=== PATIENT | female | born 1970 | race African-American/Black ===

== ENCOUNTER 2019-05-14 18:00 | Observation (INO) | payer MEDICARE, MEDICAID ==
[2019-05-14 18:47] LABS: ABSOLUTE NEUTROPHIL COUNT 7.29; BASO % 0.2 % (0-6); EOS % 1.3 % (0-6); GRAN % 63.2 % (47-80); HEMATOCRIT 37.5 % (35.0-47.0); HEMOGLOBIN 12.3 gm/dl (11.6-16.0); LYMPH % 28.4 % (16-45); MEAN CELL VOLUME 88.2 fl (81-97); MEAN CORPUSCULAR HEMOGLOBIN 28.9 pg (27-33); MEAN CORPUSCULAR HGB CONC 32.8 g/dl (32-36); MONO % 6.9 % (0-9); PLATELET COUNT 232 K/uL (130-400); RED BLOOD COUNT 4.25 M/uL (3.80-5.40); WHITE BLOOD COUNT W/O DIFF 11.5 K/uL (4.2-12.2)
[2019-05-14 19:00] LABS: BLOOD UREA NITROGEN 8 mg/dL (6-20); CREATININE 0.5 mg/dL (0.5-0.9); EST GLOMERULAR FILTRATION RATE > 60 mL/min
[2019-05-14 19:02] LABS: GLUCOSE,RANDOM 100 mg/dL (74-109)
[2019-05-14] MEDS ORDERED: ACETAMINOPHEN 1,000 MG/100 ML BTL IVPB ONE (19:04)
[2019-05-14 19:14] LABS: LIPASE 16 U/L (13-60); TOTAL PROTEIN 6.9 g/dL (6.6-8.7)
[2019-05-14] MEDS ORDERED: POTASSIUM CHLORIDE 20 MEQ TABLET PO ONE (19:14)
[2019-05-14 19:19] LABS: ALBUMIN 3.7 g/dL (4.0-5.0); ALKALINE PHOSPHATASE 87 U/L (35-104); ALT/SGPT 18 U/L (<33); AST/SGOT 17 U/L (10.0-35.0)
[2019-05-14 19:20] LABS: BILIRUBIN,DIRECT < 0.2 mg/dL (0-0.3)
--- NOTE | 2019-05-14 19:23 | Emergency Department Record ---
History of Present Illness - General Chief Complaint: Abdominal Pain Stated Complaint: DIVERTICULITUS ISSUE Time Seen by Provider: 05/14/19 18:58 Source: Patient Mode of Arrival: Ambulatory Limitations: No limitations - History of Present Illness Initial Comments: The patient is here due to a 2 day hx of AP. The pain is sharp and stabbing and is pretty much all over but does seem to be worse in the upper abdomen and does radiate down to the pelvis. The patient also has been very constipated but denies any nausea, vomiting, or dysuria. Her only abdominal surgery is having her GB removed. She does have a history of Diverticulitis with similar pain. MD Complaint: Abdominal pain Onset/Timin -: Days(s) Location: Diffuse Radiation: Suprapubic Severity: Moderate Severity scale (1-10): 9 Quality: Stabbing Consistency: Intermittent Improves With: Rest Worsens With: Movement Associated Symptoms: Constipation - Related Data Patient : No Home Medications Medication Instructions Recorded Confirmed Last Taken Budesonide/Formoterol Fumarate 2 puff INH DAILY 05/14/19 05/14/19 05/13/19 [Symbicort 160-4.5 Mcg Inhaler] Allergies Allergy/AdvReac Type Severity Reaction Status Date / Time Penicillins Allergy Severe swells Verified 05/14/19 18:11 throat Travel Screening - Travel/Exposure Within Last 30 Days Have you traveled within the last 30 days?: No - Travel/Exposure Within Last Year Have you traveled outside the [place] in the last year?: No - Additonal Travel Details Have you been exposed to anyone with a communicable illness?: No - Travel Symptoms Symptom Screening: None Review of Systems Constitutional: Denies: Chills, Fever Eyes: Denies: Eye discharge ENT: Denies: Congestion Respiratory: Denies: Cough, Dyspnea Past Medical History - SOCIAL HISTORY Smoking Status: Current every day smoker Alcohol Use: Rare Drug Use: None - RESPIRATORY Hx Respiratory Disorders: Yes Hx COPD: Yes - CARDIOVASCULAR Hx Cardio Disorders: Yes Hx Hypertension: Yes Comment:: high cholesterol - NEURO Hx Neuro Disorders: No - GI Hx GI Disorders: Yes Hx Diverticulitis: Yes - Hx Genitourinary Disorders: Yes - ENDOCRINE Hx Endocrine Disorders: No - MUSCULOSKELETAL Hx Musculoskeletal Disorders: Yes - PSYCH Hx Psych Problems: Yes Hx Anxiety: Yes Hx Depression: Yes - HEMATOLOGY/ONCOLOGY Hx Hematology/Oncology Disorders: No Family Medical History Any Significant Family History?: Yes Hx Alcohol Use: Father Hx Anxiety: Mother Hx Cancer: Brother/Sister Hx Depression: Mother, Brother/Sister Hx Diabetes: Mother, Grandparents Hx Heart Disease: Father Hx HTN: Mother Hx Stroke: Grandparents Physical Exam - General General Appearance: Alert, Oriented x3, Cooperative, No acute distress - Head Head exam: Atraumatic - Eye Eye exam: Normal appearance - Neck Neck exam: Normal inspection, Full ROM. negative: Tenderness - Respiratory Respiratory exam: Normal lung sounds bilaterally. negative: Respiratory distress - Cardiovascular Cardiovascular Exam: Regular rate, Normal rhythm, Normal heart sounds - GI/Abdominal GI/Abdominal exam: Soft, Normal bowel sounds, Tenderness (There is mild to moderate tenderness in all 4 quads.). negative: Guarding, Pulsatile mass, Rebound, Rigid - Extremities Extremities exam: Normal inspection, Full ROM, Normal capillary refill. negative: Tenderness - Back Back exam: Reports: Normal inspection - Neurological Neurological exam: Alert, Normal gait, Oriented X3. negative: Abnormal gait, Altered, Motor sensory deficit Course Vital Signs 05/14/19 18:16 Temperature 98.8 F Pulse Rate 85 Respiratory 24 Rate Blood Pressure 169/95 Pulse Ox 99 - Reevaluation(s) Reevaluation #1: The patient is doing a little better but still having significant pain. Due to that fact I did recommend a short stay hospital admission and she did agree to that plan. I then did discuss the case with Kaylee ([facility]) and she did accept the admission for Dr. Reyes. 05/14/19 20:33 Medical Decision Making - Data Complexity MDM Data: Labs Ordered and/or Reviewed, X-Ray Ordered and/or Reviewed - Lab Data Result diagrams: 05/14/19 18:30 05/14/19 18:30 Lab Results 05/14/19 05/14/19 05/14/19 Range/Units 18:30 18:30 18:30 WBC 11.5 (4.2-12.2) K/uL RBC 4.25 (3.80-5.40) M/uL Hgb 12.3 (11.6-16.0) gm/dl Hct 37.5 (35.0-47.0) % MCV 88.2 (81-97) fl MCH 28.9 (27-33) pg MCHC 32.8 (32-36) g/dl RDW 14.0 (11.5-14.5) % Plt Count 232 (130-400) K/uL MPV 11.0 H (7.4-10.4) fl Gran % 63.2 (47-80) % Lymphocytes % 28.4 (16-45) % Monocytes % 6.9 (0-9) % Eosinophils % 1.3 (0-6) % Basophils % 0.2 (0-6) % Absolute Neutrophils 7.29 Sodium 139 (136-145) mmol/L Potassium 2.7 L* (3.4-4.5) mmol/L Chloride 97 L (98-107) mmol/L Carbon Dioxide 31.0 H (22-29) mmol/L Anion Gap 11.0 (7-16) BUN 8 (6-20) mg/dL Creatinine 0.5 (0.5-0.9) mg/dL Estimated GFR > 60 mL/min Random Glucose 100 (74-109) mg/dL Calcium 9.3 (8.6-10.0) mg/dL Total Bilirubin (0.2-1.0) mg/dL Direct Bilirubin (0-0.3) mg/dL AST (10.0-35.0) U/L ALT (<33) U/L Alkaline Phosphatase (35-104) U/L Total Protein (6.6-8.7) g/dL Albumin (4.0-5.0) g/dL Lipase (13-60) U/L Serum HCG, Qual Negative (NEGATIVE) 05/14/19 Range/Units 18:30 WBC (4.2-12.2) K/uL RBC (3.80-5.40) M/uL Hgb (11.6-16.0) gm/dl Hct (35.0-47.0) % MCV (81-97) fl MCH (27-33) pg MCHC (32-36) g/dl RDW (11.5-14.5) % Plt Count (130-400) K/uL MPV (7.4-10.4) fl Gran % (47-80) % Lymphocytes % (16-45) % Monocytes % (0-9) % Eosinophils % (0-6) % Basophils % (0-6) % Absolute Neutrophils Sodium (136-145) mmol/L Potassium (3.4-4.5) mmol/L Chloride (98-107) mmol/L Carbon Dioxide (22-29) mmol/L Anion Gap (7-16) BUN (6-20) mg/dL Creatinine (0.5-0.9) mg/dL Estimated GFR mL/min Random Glucose (74-109) mg/dL Calcium (8.6-10.0) mg/dL Total Bilirubin 0.40 (0.2-1.0) mg/dL Direct Bilirubin < 0.2 (0-0.3) mg/dL AST 17 (10.0-35.0) U/L ALT 18 (<33) U/L Alkaline Phosphatase 87 (35-104) U/L Total Protein 6.9 (6.6-8.7) g/dL Albumin 3.7 L (4.0-5.0) g/dL Lipase 16 (13-60) U/L Serum HCG, Qual (NEGATIVE) - Radiology Data Radiology results: Report reviewed (CT: Sigmoid diverticulitis with no abscess or obstruction.) Disposition Disposition: Admit Clinical Impression: Diverticulitis large intestine Qualifiers: Diverticulitis bleeding: without bleeding Diverticulitis complication: unspecified complication status Qualified Code(s): K57.32 - Diverticulitis of large intestine without perforation or abscess without bleeding Disposition: Still a Patient at [facility] Decision to Admit: Admit from ER Decision to Admit Date: 05/14/19 Decision to Admit Time: 20:34 Accepting Physician: Amy Time Discussed w/Accepting Physician: 20:34 Condition: (2) Stable Instructions: Abdominal Pain (ED) Forms: Patient Portal Access Time of Disposition: 20:34 Quality - Quality Measures Quality Measures: N/A - Blood Pressure Screening View Details: Yes Does Patient Have Any of the Following: Active Dx of HTN Blood Pressure Classification: Hypertensive Reading Systolic Measurement: 169 Diastolic Measurement: 95 Screening for High Blood Pressure: Patient Exclusion, Hx of HTN [G9744]
[2019-05-14 19:32] LABS: URINE APPEARANCE CLEAR; URINE BILIRUBIN NEGATIVE (NEGATIVE); URINE BLOOD SMALL (NEGATIVE); URINE COLOR YELLOW; URINE GLUCOSE (UA) NEGATIVE (NEGATIVE); URINE KETONE NEGATIVE (NEGATIVE); URINE LEUKOCYTE ESTERASE NEGATIVE (NEGATIVE); URINE NITRITE NEGATIVE (NEGATIVE); URINE PROTEIN NEGATIVE (NEGATIVE); URINE UROBILINOGEN 0.2 E.U./dL (0.20 - 1.00)
[2019-05-14 19:40] LABS: URINE EPITHELIAL CELLS 0 - 2 (FEW); URINE WBC 0 - 2 (0-2/hpf)
[2019-05-14] MEDS ORDERED: KETOROLAC 30 MG/ML VIAL IVP ONE (19:52)
--- NOTE | 2019-05-14 20:05 | CT SCAN REPORT ---
EXAMINATION: CT Abdomen and Pelvis without IV Contrast EXAM DATE: 05/14/2019 7:56 PM TECHNIQUE: Standard protocol CT imaging of the abdomen and pelvis was performed without intravenous c ontrast. INDICATION: LLQ AP COMPARISON: None ENCOUNTER: Not applicable CT ABDOMEN AND PELVIS FINDINGS: Lung Bases: Included extent of the lung bases are clear. Small amount of enteric contrast in the dist al esophagus. Hepatobiliary: The liver has a normal size with a smooth surface. Gallbladder is absent. Pancreas: The pancreas is normal. Spleen: The spleen is not enlarged. Adrenals: Normal right adrenal. Low-attenuation left adrenal nodule measuring 2.2 cm and 7.5 Hounsfie ld units consistent with a benign adenoma. Gastrointestinal: The stomach and small bowel are normal with no obstruction or inflammation. Normal appendix moderate sigmoid colon diverticulosis. Inflamed diverticulum with focal wall thickening neris g the mesenteric border of the sigmoid colon best seen on axial image 2, 94 consistent with acute div erticulitis. No abscess or obstruction. Reproductive Organs: Unremarkable Lymphatic System: There is no adenopathy within the abdomen or pelvis. Vasculature: Normal caliber abdominal aorta Peritoneum: No free fluid, free air, or inflammation Assessment of the solid organs, soft tissues, and vascular structures is overall limited on noncontra st imaging, IMPRESSION: 1. Acute sigmoid colon diverticulitis with no abscess or obstruction. 2. Benign left adrenal adenoma. Dictated by: Michel Gold MD on 05/14/2019 8:00 PM. .
[2019-05-14] MEDS ORDERED: CIPROFLOXACIN LACTATE/D5W 400 MG/200 ML BAG IVPB ONE (20:11)
[2019-05-14] MEDS ORDERED: HYDROMORPHONE HCL 2 MG/ML VIAL IVP ONE (20:25)
[2019-05-14] MEDS ORDERED: ONDANSETRON HCL IV 4 MG/2 ML VIAL IVP ONE (20:25)
[2019-05-14] MEDS ORDERED: CIPROFLOXACIN LACTATE/D5W 400 MG/200 ML BAG IVPB SCH (21:52)
[2019-05-14] MEDS ORDERED: POTASSIUM CHLORIDE/D5-0.9%NACL 20 MEQ/1,000 ML BAG IV ONE (21:52)
[2019-05-14] MEDS ORDERED: ONDANSETRON HCL IV 4 MG/2 ML VIAL IVP PRN (21:52)
[2019-05-14] MEDS ORDERED: ACETAMINOPHEN 1,000 MG/100 ML BTL IVPB PRN (21:52)
[2019-05-14] MEDS ORDERED: ALBUTEROL HFA 8 GM INHALER INH PRN (21:52)
[2019-05-14] MEDS ORDERED: POTASSIUM CHLORIDE 20 MEQ TABLET PO SCH (22:00)
[2019-05-14] MEDS ORDERED: AMLODIPINE BESYLATE 5MG TAB PO SCH (22:30)
[2019-05-14] MEDS: METRONIDAZOLE IVPB 500 MG/100 ML BAG IVPB SCH (22:40)
[2019-05-15] MEDS: HYDROMORPHONE HCL 2 MG/ML VIAL IV PRN ×3 (00:12→08:04)
[2019-05-15] MEDS: METRONIDAZOLE IVPB 500 MG/100 ML BAG IVPB SCH (06:02)
[2019-05-15 06:31] LABS: ABSOLUTE NEUTROPHIL COUNT 4.67; BASO % 0.2 % (0-6); EOS % 2.8 % (0-6); GRAN % 50.9 % (47-80); HEMATOCRIT 35.5 % (35.0-47.0); HEMOGLOBIN 11.4 gm/dl (11.6-16.0); LYMPH % 36.3 % (16-45); MEAN CELL VOLUME 89.9 fl (81-97); MEAN CORPUSCULAR HGB CONC 32.1 g/dl (32-36); MEAN PLATELET VOLUME 10.2 fl (7.4-10.4); MONO % 9.8 % (0-9); PLATELET COUNT 212 K/uL (130-400); RED BLOOD COUNT 3.95 M/uL (3.80-5.40); RED CELL DISTRIBUTION WIDTH 14.1 % (11.5-14.5); WHITE BLOOD COUNT W/O DIFF 9.2 K/uL (4.2-12.2)
[2019-05-15 06:34] LABS: MEAN CORPUSCULAR HEMOGLOBIN 28.8 pg (27-33)
[2019-05-15 06:46] LABS: BLOOD UREA NITROGEN 9 mg/dL (6-20); CREATININE 0.6 mg/dL (0.5-0.9); EST GLOMERULAR FILTRATION RATE > 60 mL/min; GLUCOSE,RANDOM 130 mg/dL (74-109)
[2019-05-15] MEDS ORDERED: POTASSIUM CHLORIDE 20 MEQ TABLET PO ONE (07:09)
[2019-05-15] MEDS: SOD CHLOR 0.9% WITH KCL 40MEQ 40 MEQ/1,000 ML IV.SOLN IV SCH ×3 (08:05→17:46)
[2019-05-15] MEDS ORDERED: ALBUTEROL HFA 8 GM INHALER INH PRN (08:15)
--- NOTE | 2019-05-15 09:56 | History & Physical ---
History of Present Illness - Date of Service Date of Service for History & Physical: 05/15/19 - History of Present Illness Admitting Diagnosis: 1. Acute Sigmoid Diverticulitis. History of Present Illness: 49 year old female patient presented to ED with complaints of worsening abdominal pain since Sunday. Patient reports noting decreased appetite and co nstipation. Patient denies nausea, vomiting, urinary symptoms, shortness of breath, or chest pain. Patient reports a history of diverticulitis nearly 1 year ago and had a colonoscopy completed after that admission as well. Patient continues to follow with [facility]. Patient's past medical history includes COPD, HTN, and a cholecystectomy. PCP: Dr. Reyes ED Course: K 2.7 - received 40mEq K PO and 20mEq K IVPB CBC, CMP otherwise unremarkable UA negative for infection Abd/pelvic CT: acute sigmoid colon diverticulitis with no abscess or obstruction; benign left adrenal adenoma 05/15/19: Patient A&O x 4, resting comfortably in bed. Patient reports improvement in abdominal pain with IV pain medication. Denies nausea or worsening of abdominal pain with clear liquids. Travel Screening - Travel/Exposure Within Last 30 Days Have you traveled within the last 30 days?: No - Travel/Exposure Within Last Year Have you traveled outside the [place] in the last year?: No - Additonal Travel Details Have you been exposed to anyone with a communicable illness?: No - Travel Symptoms Symptom Screening: None Review of Systems Reviewed: No additional complaints except as noted below Constitutional: Denies: Chills, Fever Eyes: Denies: Eye discharge ENT: Denies: Congestion Respiratory: Denies: Cough, Dyspnea Gastrointestinal: Reports: Abdominal pain Past Medical History - SOCIAL HISTORY Smoking Status: Current every day smoker Alcohol Use: Rare Drug Use: None - RESPIRATORY Hx Respiratory Disorders: Yes Hx COPD: Yes - CARDIOVASCULAR Hx Cardio Disorders: Yes Hx Hypertension: Yes Comment:: high cholesterol - NEURO Hx Neuro Disorders: No - GI Hx GI Disorders: Yes Hx Diverticulitis: Yes - Hx Genitourinary Disorders: Yes - ENDOCRINE Hx Endocrine Disorders: No - MUSCULOSKELETAL Hx Musculoskeletal Disorders: Yes - PSYCH Hx Psych Problems: Yes Hx Anxiety: Yes Hx Depression: Yes - HEMATOLOGY/ONCOLOGY Hx Hematology/Oncology Disorders: No Family Medical History Any Significant Family History?: Yes Hx Alcohol Use: Father Hx Anxiety: Mother Hx Cancer: Brother/Sister Hx Depression: Mother, Brother/Sister Hx Diabetes: Mother, Grandparents Hx Heart Disease: Father Hx HTN: Mother Hx Stroke: Grandparents H&P Meds/Allergies - Allergies Allergies: Allergies Allergy/AdvReac Type Severity Reaction Status Date / Time Penicillins Allergy Severe swells Verified 05/14/19 18:11 throat - Home Medications Home Medications Medication Instructions Recorded Confirmed Last Taken Budesonide/Formoterol Fumarate 2 puff INH DAILY 05/14/19 05/14/19 05/13/19 [Symbicort 160-4.5 Mcg Inhaler] - Active Medications Active Medications: Current Medications Albuterol Sulfate (Ventolin Hfa) 2 puff INH Q4HR PRN PRN Reason: DYSPNEA Amlodipine Besylate (Norvasc) 10 mg PO DAILY [facility] Hydromorphone HCl (Dilaudid) 1 mg IV Q4H PRN PRN Reason: ABDOMINAL PAIN Last Admin: 05/15/19 08:04 Dose: 1 mg Documented by: Acetaminophen (Ofirmev) 1,000 mg in 100 mls @ 400 mls/hr IVPB Q6H PRN PRN Reason: PAIN - MILD TO MODERATE (1-7) Potassium Chloride/Sodium Chloride (Potassium Chl 40meq/) 40 meq in 1,000 mls @ 125 mls/hr IV Q8H NADIA Last Admin: 05/15/19 08:05 Dose: 125 mls/hr Documented by: Ciprofloxacin Lactate (Cipro) 400 mg in 200 mls @ 200 mls/hr IVPB Q12H NADIA Stop: 05/20/19 10:01 Metronidazole/Sodium Chloride (Flagyl) 500 mg in 100 mls @ 100 mls/hr IVPB Q8H [facility] Stop: 05/20/19 17:01 Ondansetron HCl (Zofran) 4 mg IVP Q4H PRN PRN Reason: NAUSEA Pantoprazole Sodium (Protonix Iv) 40 mg IV DAILY [facility] Venlafaxine HCl (Effexor Xr) 75 mg PO DAILY [facility] Physical Exam - Vital Signs Vital Signs: Vital Signs - Last 24 Hrs Temp Pulse Pulse Pulse Resp BP BP 05/15/19 08:00 97.3 F L 68 16 137/79 05/15/19 03:50 97.8 F 68 20 127/74 05/15/19 02:14 72 20 05/14/19 21:52 99 F 72 20 123/64 05/14/19 21:15 72 20 116/48 05/14/19 19:53 74 166/62 05/14/19 18:16 98.8 F 85 24 169/95 Pulse Ox 05/15/19 08:00 100 05/15/19 03:50 97 05/15/19 02:14 05/14/19 21:52 94 L 05/14/19 21:15 95 05/14/19 19:53 99 05/14/19 18:16 99 - General General Appearance: Alert, Oriented x3, Cooperative, No acute distress Limitations: No limitations - Head Head exam: Atraumatic - Eye Eye exam: Normal appearance - ENT ENT exam: Mucous membranes moist, Normal external ear exam - Neck Neck exam: Normal inspection, Full ROM. negative: Tenderness - Respiratory Respiratory exam: Normal lung sounds bilaterally. negative: Respiratory distress - Cardiovascular Cardiovascular Exam: Regular rate, Normal rhythm, Normal heart sounds Peripheral Pulses: 2+: Radial (R), Radial (L) - GI/Abdominal GI/Abdominal exam: Soft, Normal bowel sounds, Tenderness (There is mild to moderate tenderness in LUQ and LLQ). negative: Guarding, Pulsatile mass, Rebound, Rigid - Rectal Rectal exam: Deferred - exam: Deferred - Extremities Extremities exam: Normal inspection, Full ROM, Normal capillary refill. negative: Tenderness - Back Back exam: Reports: Normal inspection - Neurological Neurological exam: Alert, Normal gait, Oriented X3. negative: Abnormal gait, Altered, Motor sensory deficit - Psychiatric Psychiatric exam: Normal affect, Normal mood - Skin Skin exam: Normal color Results - Labs Result Diagrams: 05/15/19 06:20 05/15/19 06:20 Labs Last 24 Hours: Laboratory Results - last 24 hr 05/14/19 05/14/19 05/14/19 09:25 18:30 18:30 WBC 11.5 RBC 4.25 Hgb 12.3 Hct 37.5 MCV 88.2 MCH 28.9 MCHC 32.8 RDW 14.0 Plt Count 232 MPV 11.0 H Gran % 63.2 Lymphocytes % 28.4 Monocytes % 6.9 Eosinophils % 1.3 Basophils % 0.2 Absolute Neutrophils 7.29 Sodium 139 Potassium 2.7 L* Chloride 97 L Carbon Dioxide 31.0 H Anion Gap 11.0 BUN 8 Creatinine 0.5 Estimated GFR > 60 Random Glucose 100 Calcium 9.3 Total Bilirubin Direct Bilirubin AST ALT Alkaline Phosphatase Total Protein Albumin Lipase Serum HCG, Qual Urine Color Yellow Urine Appearance Clear Urine pH 7.5 Ur Specific Beemer 1.010 Urine Protein Negative Urine Glucose (UA) Negative Urine Ketones Negative Urine Blood Small H Urine Nitrite Negative Urine Bilirubin Negative Urine Urobilinogen 0.2 Ur Leukocyte Esterase Negative Urine RBC 3 - 6 Urine WBC 0 - 2 Ur Epithelial Cells 0 - 2 Urine HCG, Qual Cancelled 05/14/19 05/14/19 05/15/19 18:30 18:30 06:20 WBC 9.2 RBC 3.95 Hgb 11.4 L Hct 35.5 MCV 89.9 MCH 28.8 MCHC 32.1 RDW 14.1 Plt Count 212 MPV 10.2 Gran % 50.9 Lymphocytes % 36.3 Monocytes % 9.8 H Eosinophils % 2.8 Basophils % 0.2 Absolute Neutrophils 4.67 Sodium Potassium Chloride Carbon Dioxide Anion Gap BUN Creatinine Estimated GFR Random Glucose Calcium Total Bilirubin 0.40 Direct Bilirubin < 0.2 AST 17 ALT 18 Alkaline Phosphatase 87 Total Protein 6.9 Albumin 3.7 L Lipase 16 Serum HCG, Qual Negative Urine Color Urine Appearance Urine pH Ur Specific Beemer Urine Protein Urine Glucose (UA) Urine Ketones Urine Blood Urine Nitrite Urine Bilirubin Urine Urobilinogen Ur Leukocyte Esterase Urine RBC Urine WBC Ur Epithelial Cells Urine HCG, Qual 05/15/19 06:20 WBC RBC Hgb Hct MCV MCH MCHC RDW Plt Count MPV Gran % Lymphocytes % Monocytes % Eosinophils % Basophils % Absolute Neutrophils Sodium 138 Potassium 2.8 L* Chloride 97 L Carbon Dioxide 32.0 H Anion Gap 9.0 BUN 9 Creatinine 0.6 Estimated GFR > 60 Random Glucose 130 H Calcium 9.0 Total Bilirubin Direct Bilirubin AST ALT Alkaline Phosphatase Total Protein Albumin Lipase Serum HCG, Qual Urine Color Urine Appearance Urine pH Ur Specific Beemer Urine Protein Urine Glucose (UA) Urine Ketones Urine Blood Urine Nitrite Urine Bilirubin Urine Urobilinogen Ur Leukocyte Esterase Urine RBC Urine WBC Ur Epithelial Cells Urine HCG, Qual - Imaging and Cardiology CT scan - abdomen Status: Report reviewed VTE H&P Assessment - Risk for VTE Risk for VTE: Yes Risk Level: Moderate Risk Assessment Date: 05/15/19 Risk Assessment Time: 10:47 VTE Orders Placed or Will Be Placed: Yes Plan - Detailed Diagnosis and Plan (1) Sigmoid diverticulitis Current Visit: Yes Status: Acute Base Code: K57.32 - DVTRCLI OF LG INT W/O PERFORATION OR ABSCESS W/O BLEEDING Comment: 05/15/19: -Generalized abdominal pain with anorexia since Sunday -Abd/Pelvic CT: acute sigmoid diverticulitis with no abscess or obstruction -WBC 11.5 -UA negative for infection -Afebrile -Cipro and Flagyl IVPB -Clear liquid diet -Dilaudid and Ofirmev for pain -Previous diverticulitis 1 year ago, colonscopy completed at that time, patient of [facility] (2) Hypokalemia Current Visit: Yes Status: Acute Base Code: E87.6 - HYPOKALEMIA Comment: 05/15/19: -K 2.7 on admission, received 40mEq K PO and 20mEq IVPB -K 2.8 this morning -Additional 40mEq K PO -40mEq K with 1000ml NS @ 125ml/hr -Hypokalemia likely due to poor PO intake -Holding HCTZ -Recheck K in 6 hours (3) DVT prophylaxis Current Visit: Yes Status: Acute Base Code: Z29.9 - ENCOUNTER FOR PROPHYLACTIC MEASURES, UNSPECIFIED Comment: 05/15/19: -Moderate risk due to hospitalization and decreased mobility due to pain -Lovenox 40mg SQ daily while admitted (4) Full code status Current Visit: Yes Status: Acute Base Code: Z78.9 - OTHER SPECIFIED HEALTH STATUS Comment: 05/15/19: -Patient is a full code this admission
[2019-05-15] MEDS ORDERED: VENLAFAXINE ER 75 MG CAPSULE PO SCH (10:00)
[2019-05-15] MEDS ORDERED: UMECLIDINIUM BROMIDE (INCRUSE) 62.5MCG IH SCH (10:00)
[2019-05-15] MEDS ORDERED: CIPROFLOXACIN LACTATE/D5W 400 MG/200 ML BAG IVPB SCH (10:00)
[2019-05-15] MEDS ORDERED: BREO (FLUTICASONE/VILANTEROL) 200MCG/25MCG INHALER INH SCH (10:00)
[2019-05-15] MEDS ORDERED: PANTOPRAZOLE SODIUM IV 40 MG VIAL IV SCH (10:00)
[2019-05-15] MEDS ORDERED: HYDROCHLOROTHIAZIDE 25 MG TABLET PO SCH (10:00)
[2019-05-15] MEDS ORDERED: AMLODIPINE BESYLATE 5MG TAB PO SCH ×2 (10:00)
[2019-05-15] MEDS ORDERED: HYDROCHLOROTHIAZIDE 12.5 MG CAPSULE PO SCH (10:00)
[2019-05-15] MEDS ORDERED: NICOTINE 21 MG/24 HOUR PATCH TD SCH (10:30)
[2019-05-15] MEDS ORDERED: HYDROCODONE/APAP 5/325MG TABLET PO PRN (10:39)
--- NOTE | 2019-05-15 16:58 | Discharge Summary ---
Providers Discharge Summary Date: 05/15/19 Date of admission: 05/14/19 21:24 Expected Date of Discharge: 05/15/19 Attending physician: MARIELA LOUIS Primary care physician: MARIELA LOUIS Physical Exam - Vital Signs Vital Signs: Vital Signs - Last 24 Hrs Temp Pulse Pulse Pulse Resp BP BP 05/15/19 14:00 97.8 F 65 16 113/67 05/15/19 10:22 84 20 05/15/19 09:00 68 20 05/15/19 08:00 97.3 F L 68 16 137/79 05/15/19 03:50 97.8 F 68 20 127/74 05/15/19 02:14 72 20 05/14/19 21:52 99 F 72 20 123/64 05/14/19 21:15 72 20 116/48 05/14/19 19:53 74 166/62 05/14/19 18:16 98.8 F 85 24 169/95 Pulse Ox 05/15/19 14:00 100 05/15/19 10:22 97 05/15/19 09:00 05/15/19 08:00 100 05/15/19 03:50 97 05/15/19 02:14 05/14/19 21:52 94 L 05/14/19 21:15 95 05/14/19 19:53 99 05/14/19 18:16 99 - General General Appearance: Alert, Oriented x3, Cooperative, No acute distress Limitations: No limitations - Head Head exam: Atraumatic - Eye Eye exam: Normal appearance, PERRL - ENT ENT exam: Mucous membranes moist, Normal external ear exam - Neck Neck exam: Normal inspection, Full ROM. negative: Tenderness - Respiratory Respiratory exam: Normal lung sounds bilaterally. negative: Respiratory distress - Cardiovascular Cardiovascular Exam: Regular rate, Normal rhythm, Normal heart sounds Peripheral Pulses: 2+: Radial (R), Radial (L) - GI/Abdominal GI/Abdominal exam: Soft, Normal bowel sounds. negative: Guarding, Pulsatile mass, Rebound, Rigid, Tenderness - Rectal Rectal exam: Deferred - exam: Deferred - Extremities Extremities exam: Normal inspection, Full ROM, Normal capillary refill. negative: Tenderness - Back Back exam: Reports: Normal inspection - Neurological Neurological exam: Alert, Normal gait, Oriented X3. negative: Abnormal gait, Altered, Motor sensory deficit - Psychiatric Psychiatric exam: Normal affect, Normal mood - Skin Skin exam: Normal color Hospitalization - Hospitalization Admission Diagnosis: 1. Acute Sigmoid Diverticulitis. - Problem List/Discharge Diagnosis (1) Sigmoid diverticulitis Current Visit: Yes Status: Acute Base Code: K57.32 - DVTRCLI OF LG INT W/O PERFORATION OR ABSCESS W/O BLEEDING Comment: 05/15/19: -Generalized abdominal pain with anorexia since Sunday -Abd/Pelvic CT: acute sigmoid diverticulitis with no abscess or obstruction -WBC 11.5 -UA negative for infection -Afebrile -Cipro and Flagyl IVPB while hospitalized, dc with PO -Has tolerated a bland diet, conche loader and unloader met with patient and discussed appropriately dietary intake -Pain well-controlled with [place] 5/325 -Previous diverticulitis 1 year ago, colonscopy completed at that time, patient of [facility] (2) Hypokalemia Current Visit: Yes Status: Acute Base Code: E87.6 - HYPOKALEMIA Comment: 05/15/19: -K 2.7 on admission, received 40mEq K PO and 20mEq IVPB -K 2.8 this morning, -Additional 40mEq K PO -40mEq K with 1000ml NS @ 125ml/hr -Hypokalemia likely due to poor PO intake -Holding HCTZ -Repeat K 3.2 -DC with Potassium chloride 20mEq BID until resumption of normal diet (3) DVT prophylaxis Current Visit: Yes Status: Acute Base Code: Z29.9 - ENCOUNTER FOR PROPHYLACTIC MEASURES, UNSPECIFIED Comment: 05/15/19: -Moderate risk due to hospitalization and decreased mobility due to pain -Lovenox 40mg SQ daily while admitted (4) Full code status Current Visit: Yes Status: Acute Base Code: Z78.9 - OTHER SPECIFIED HEALTH STATUS Comment: 05/15/19: -Patient is a full code this admission - Hospitalization Course Disposition: Home, Self-Care Hospital Course: 49 year old female patient presented to ED with complaints of worsening abdominal pain since Sunday. Patient reports noting decreased appetite and constipation. Patient denies nausea, vomiting, urinary symptoms, shortness of breath, or chest pain. Patient reports a history of diverticulitis nearly 1 year ago and had a colonoscopy completed after that admission as well. Patient continues to follow with [facility]. Patient's past medical history includes COPD, HTN, and a cholecystectomy. PCP: Dr. Louis ED Course: K 2.7 - received 40mEq K PO and 20mEq K IVPB CBC, CMP otherwise unremarkable UA negative for infection Abd/pelvic CT: acute sigmoid colon diverticulitis with no abscess or obstruction; benign left adrenal adenoma 05/15/19: Patient A&O x 4, resting comfortably in bed. Patient reports improvement in abdominal pain with IV pain medication. Denies nausea or worsening of abdominal pain with clear liquids. UPDATE: Patient has tolerated a bland diet, no nausea, vomiting, or diarrhea. Resolution of abdominal pain with Springs. K improved to 3.2. Will dc home with Cipro, Flagyl, [place], and Potassium. Follow-up with PCP in 1 week. Procedures: Imaging and X-Rays 05/14/19 19:15 ABDOMEN/PELVIS WO CONTRAST [CT] Stat Abnormal Labs: Abnormal Lab Results 05/14/19 05/14/19 05/14/19 Range/Units 09:25 18:30 18:30 Hgb (11.6-16.0) gm/dl MPV 11.0 H (7.4-10.4) fl Monocytes % (0-9) % Potassium 2.7 L* (3.4-4.5) mmol/L Chloride 97 L (98-107) mmol/L Carbon Dioxide 31.0 H (22-29) mmol/L Random Glucose (74-109) mg/dL Albumin (4.0-5.0) g/dL Urine Blood Small H (NEGATIVE) 05/14/19 05/15/19 05/15/19 Range/Units 18:30 06:20 06:20 Hgb 11.4 L (11.6-16.0) gm/dl MPV (7.4-10.4) fl Monocytes % 9.8 H (0-9) % Potassium 2.8 L* (3.4-4.5) mmol/L Chloride 97 L (98-107) mmol/L Carbon Dioxide 32.0 H (22-29) mmol/L Random Glucose 130 H (74-109) mg/dL Albumin 3.7 L (4.0-5.0) g/dL Urine Blood (NEGATIVE) 05/15/19 Range/Units 12:29 Hgb (11.6-16.0) gm/dl MPV (7.4-10.4) fl Monocytes % (0-9) % Potassium 3.2 L (3.4-4.5) mmol/L Chloride (98-107) mmol/L Carbon Dioxide (22-29) mmol/L Random Glucose (74-109) mg/dL Albumin (4.0-5.0) g/dL Urine Blood (NEGATIVE) Condition at Discharge: (2) Stable Discharge Medications - Discharge Medications Prescriptions: Ciprofloxacin HCl [Cipro] 500 mg PO Q12HR #12 tablet Metronidazole [Flagyl] 500 mg PO Q8H #18 tablet Hydrocodone/APAP 5/325Mg [[place] 5Mg/325Mg] 1 each PO Q6H PRN #10 tab PRN Reason: Abdominal Pain Potassium Chloride 20 meq PO BID #10 tab.er.prt Home Medications: Ambulatory Orders Multivit,Calc,Mins/Iron/Folic [Women's Daily Caplet] 1 each PO DAILY tab 01/10/19 [Last Taken 05/13/19] Budesonide/Formoterol Fumarate [Symbicort 160-4.5 Mcg Inhaler] 2 puff INH DAILY 05/14/19 [Last Taken 05/13/19] Ciprofloxacin HCl [Cipro] 500 mg PO Q12HR #12 tablet 05/15/19 [Last Taken Unknown] Hydrocodone/APAP 5/325Mg [[place] 5Mg/325Mg] 1 each PO Q6H PRN #10 tab 05/15/19 [Last Taken Unknown] Metronidazole [Flagyl] 500 mg PO Q8H #18 tablet 05/15/19 [Last Taken Unknown] Potassium Chloride 20 meq PO BID #10 tab.er.prt 05/15/19 [Last Taken Unknown] Discharge Plan - Discharge Instructions Activity at Discharge: Increase Activity as Tolerated Diet at Discharge: Advance to Usual Diet Instructions: Abdominal Pain (ED) Additional Instructions: -Take the potassium supplement twice a day until you are again eating -Take the Springs as needed for pain. Use cautiously as they can cause constipation, may require use of stool softeners -You have been sent in 2 antibiotics, cipro and flagyl -Cipro: 1 tab every 12 hours, your next dose is due at 10pm -Flagyl: 1 tab every 8 hours, your next dose is due at 7pm -Follow-up with Dr. Louis in 1-2 weeks Follow low fiber diet handout short term until DrGrace follow up and ok to advance to high fiber diet for shelter--make sure drinking extra fluids once increasing fiber in diet. Quality Measures - Quality Measures Quality Measures: Documentation of Current Medications in Medical Record, Screening for High Blood Pressure and F/U Documented - Current Medications Quality Measure: Measure #130: Documentation of Current Medications Documentation of Current Medications: <Current Medications Documented/Reviewed> [G8427] - Blood Pressure Screening Quality Measure: Screening for High Blood Pressure and Follow-Up Documented Does Patient Have Any of the Following: Active Dx of HTN Blood Pressure Classification: Hypertensive Reading Systolic Measurement: 169 Diastolic Measurement: 95 Screening for High Blood Pressure: Patient Exclusion, Hx of HTN [G9744] - Elder Abuse Suspicion Index EASI Reference Information: Jocelin HERNANDEZ, Janki C, Maria Guadalupe D, Darrion Tovar.Development and validation of a tool to assist physicians identification of elder abuse: The Elder Abuse Suspicion Index (EASI ). Journal of Elder Abuse and Neglect, 2008; 20 (3): 276-300.
[2019-05-15] MEDS ORDERED: METRONIDAZOLE IVPB 500 MG/100 ML BAG IVPB SCH (17:00)
[2019-05-16] MEDS ORDERED: ENOXAPARIN 40 MG/0.4 ML SYR SQ SCH (10:00)
== END 2019-05-15 17:25 | disposition home or self-care (01) ==
LOC: ER 18:00 → MEDSURG 21:24
PROVIDERS: ADMIT Internal Medicine; ATTEND Internal Medicine
DX: K57.32 Diverticulitis of large intestine without perforation or abscess without bleeding (principal); E87.6 Hypokalemia; J44.9 Chronic obstructive pulmonary disease, unspecified; I10 Essential (primary) hypertension; E78.00 Pure hypercholesterolemia, unspecified; F17.210 Nicotine dependence, cigarettes, uncomplicated; Z90.49 Acquired absence of other specified parts of digestive tract
CPT/HCPCS: 74176; 80048; 80076; 81001; 83690; 84132; 84703; 85025; 94640; 96365; 96366; 96374; 96375; 99220; 99285; C9113; J1885; J2405

== ENCOUNTER 2019-06-29 14:07 | Emergency (ER) | payer MEDICARE, MEDICAID ==
--- NOTE | 2019-06-29 15:22 | Emergency Department Record ---
History of Present Illness - General Chief complaint: Extremity Problem Stated complaint: lt shoulder pain radiating down arm Time Seen by Provider: 06/29/19 15:18 Source: Patient Mode of Arrival: Ambulatory - History of Present Illness Initial comments: The patient states she has been moving furniture the past few days. Last night her left shoulder began to hurt. During the night and today is has worsened. Now she can't lift it above her side. MD Complaint: Extremity pain Onset/Timin -: Hour(s) Location: Left, Arm, Shoulder History of Same: No Severity scale (1-10): 8 Quality: Sharp Consistency: Constant Improves with: Nothing Worsens with: Exertion Associated Symptoms: Denies other symptoms - Related Data Previous Rx's Medication Instructions Recorded Ciprofloxacin HCl [Cipro] 500 mg PO Q12HR #12 tablet 05/15/19 Hydrocodone/APAP 5/325Mg [[place] 1 each PO Q6H PRN #10 tab 05/15/19 5Mg/325Mg] Metronidazole [Flagyl] 500 mg PO Q8H #18 tablet 05/15/19 Potassium Chloride 20 meq PO BID #10 tab.er.prt 05/15/19 Cyclobenzaprine HCl [Flexeril] 10 mg PO TID #14 tablet 06/29/19 Allergies Allergy/AdvReac Type Severity Reaction Status Date / Time Penicillins Allergy Severe swells Verified 06/29/19 15:10 throat Travel Screening - Travel/Exposure Within Last 30 Days Have you traveled within the last 30 days?: No - Travel/Exposure Within Last Year Have you traveled outside the [place] in the last year?: No - Additonal Travel Details Have you been exposed to anyone with a communicable illness?: No - Travel Symptoms Symptom Screening: None Review of Systems Reviewed: No additional complaints except as noted below Constitutional: Reports: As per HPI. Denies: Chills, Fever, Malaise, Night sweats, Weakness, Weight change Eyes: Reports: As per HPI. Denies: Eye discharge, Eye pain, Photophobia, Vision change ENT: Reports: As per HPI. Denies: Congestion, Dental pain, Ear pain, Epistaxis, Hearing loss, Throat pain Respiratory: Reports: As per HPI. Denies: Cough, Dyspnea, Hemoptysis, Stridor, Wheezes Cardiovascular: Reports: As per HPI. Denies: Arrhythmia, Chest pain, Dyspnea on exertion, Edema, Murmurs, Orthopnea, Palpitations, Paroxysmal nocturnal dyspnea, Rheumatic Fever, Syncope Endocrine: Reports: As per HPI. Denies: Fatigue, Heat or cold intolerance, Polydipsia, Polyuria Gastrointestinal: Reports: As per HPI. Denies: Abdominal pain, Constipation, Diarrhea, Hematemesis, Hematochezia, Melena, Nausea, Vomiting Genitourinary: Reports: As per HPI. Denies: Abnormal menses, Discharge, Dyspareunia, Dysuria, Frequency, Hematuria, Incontinence, Retention, Urgency Musculoskeletal: Reports: As per HPI. Denies: Arthralgia, Back pain, Gout, Joint swelling, Myalgia, Neck pain Skin: Reports: As per HPI. Denies: Bruising, Change in color, Change in hair/nails, Lesions, Pruritus, Rash Neurological: Reports: As per HPI. Denies: Abnormal gait, Confusion, Headache, Numbness, Paresthesias, Seizure, Tingling, Tremors, Vertigo, Weakness Psychiatric: Reports: As per HPI. Denies: Anxiety, Auditory hallucinations, Depression, Homicidal thoughts, Suicidal thoughts, Visual hallucinations Hematological/Lymphatic: Reports: As per HPI. Denies: Anemia, Blood Clots, Easy bleeding, Easy bruising, Swollen glands Past Medical History - SOCIAL HISTORY Smoking Status: Current every day smoker Alcohol Use: None Drug Use: None - RESPIRATORY Hx Respiratory Disorders: Yes Hx COPD: Yes - CARDIOVASCULAR Hx Cardio Disorders: Yes Hx Hypertension: Yes Comment:: high cholesterol - NEURO Hx Neuro Disorders: No - GI Hx GI Disorders: Yes Hx Diverticulitis: Yes - Hx Genitourinary Disorders: Yes - ENDOCRINE Hx Endocrine Disorders: No - MUSCULOSKELETAL Hx Musculoskeletal Disorders: Yes - PSYCH Hx Psych Problems: Yes Hx Anxiety: Yes Hx Depression: Yes - HEMATOLOGY/ONCOLOGY Hx Hematology/Oncology Disorders: No Family Medical History Any Significant Family History?: Yes Hx Alcohol Use: Father Hx Anxiety: Mother Hx Cancer: Brother/Sister Hx Depression: Mother, Brother/Sister Hx Diabetes: Mother, Grandparents Hx Heart Disease: Father Hx HTN: Mother Hx Stroke: Grandparents Physical Exam - General General Appearance: Alert, Oriented x3, Cooperative, Mild distress - Head Head exam: Normal inspection - Eye Eye exam: Normal appearance, PERRL, EOMI. negative: Conjunctival injection, Nystagmus Pupils: Normal accommodation - ENT ENT exam: Normal exam, Mucous membranes moist, Normal external ear exam, Normal orophraynx Ear exam: Normal external inspection. negative: External canal tenderness Nasal Exam: Normal inspection. negative: Discharge, Sinus tenderness Mouth exam: Normal external inspection, Tongue normal Teeth exam: Normal inspection. negative: Dental caries Throat exam: Normal inspection. negative: Tonsillar erythema, Tonsillar exudate - Neck Neck exam: Normal inspection, Full ROM, Other (no bony tenderness). negative: Lymphadenopathy, Meningismus, Tenderness - Respiratory Respiratory exam: Normal lung sounds bilaterally. negative: Chest wall tendern ess, Respiratory distress - Cardiovascular Cardiovascular Exam: Regular rate, Normal rhythm, Normal heart sounds - GI/Abdominal GI/Abdominal exam: Soft, Normal bowel sounds. negative: Tenderness - Rectal Rectal exam: Deferred - exam: Deferred - Extremities Extremities exam: Normal inspection, Full ROM, Normal capillary refill, Tenderness (tender anterior shoulder region on palpation; unable to do ROM due to pain, CMS intact distally..) - Back Back exam: Reports: Normal inspection, Full ROM. Denies: CVA tenderness (R), CVA tenderness (L), Muscle spasm, Rash noted, Tenderness - Neurological Neurological exam: Alert, CN II-XII intact, Normal gait, Oriented X3, Reflexes normal. negative: Motor sensory deficit - Psychiatric Psychiatric exam: Normal affect, Normal mood - Skin Skin exam: Dry, Intact, Normal color, Warm Course Vital Signs 06/29/19 15:12 Temperature 97.9 F Pulse Rate 88 Respiratory 20 Rate Blood Pressure 119/63 Pulse Ox 97 - Reevaluation(s) Reevaluation #1: Discussed results and management with patient. All questions answered. Patient is ready for DC. 06/29/19 17:28 Medical Decision Making - Management Options MDM Management: No Additional Work-up Planned - Data Complexity MDM Data: X-Ray Ordered and/or Reviewed (Degenrativ changes medial left humeral head. No acute fracture or dislocation. Per Rad.) Disposition Disposition: Discharge Clinical Impression: Left shoulder strain Qualifiers: Encounter type: initial encounter Qualified Code(s): S46.912A - Strain of unspecified muscle, fascia and tendon at shoulder and upper arm level, left arm, initial encounter Disposition: Home, Self-Care Condition: (1) Good Instructions: Rotator Cuff Injury (ED) Additional Instructions: Sling left shoulder during the day. Range of motion of shoulder using gravity four or more times daily to prevent frozen shoulder. Follow up with your PCP later this week for recheck Flexeril as directed for muscle spasm. Continue use of mobic as before for anti-inflammatory and pain control. No use of left arm/should Prescriptions: Cyclobenzaprine HCl [Flexeril] 10 mg PO TID #14 tablet Forms: Patient Portal Access Quality - Quality Measures Quality Measures: N/A - Blood Pressure Screening Does Patient Have Any of the Following: No Blood Pressure Classification: Normal BP Reading Systolic Measurement: 119 Diastolic Measurement: 63 Screening for High Blood Pressure: < Normal BP, F/U Not Required > [G8793]
--- NOTE | 2019-06-29 16:34 | RADIOLOGY REPORT ---
EXAMINATION: Left Shoulder, Complete Minimum Two Views EXAM DATE: 06/29/2019 3:53 PM TECHNIQUE: AP, Grashey, and axillary INDICATION: SHOULDER PAIN COMPARISON: None ENCOUNTER: Initial FINDINGS: Degenerative changes involve the medial aspect of the left humeral head. No acute fracture or disloca tion. IMPRESSION: No acute fracture. Dictated by: Santosh Connolly MD on 06/29/2019 4:31 PM. .
[2019-06-29] MEDS ORDERED: ORPHENADRINE CITRATE 60MG/2ML VIAL IM ONE (16:57)
[2019-06-29] MEDS ORDERED: KETOROLAC 30 MG/ML VIAL IM ONE (16:57)
== END 2019-06-29 17:48 | disposition home or self-care (01) ==
LOC: ER 14:07
DX: S46.912A Strain of unspecified muscle, fascia and tendon at shoulder and upper arm level, left arm, initial encounter (principal); X50.0XXA Overexertion from strenuous movement or load, initial encounter; I10 Essential (primary) hypertension; J44.9 Chronic obstructive pulmonary disease, unspecified; F17.210 Nicotine dependence, cigarettes, uncomplicated
CPT/HCPCS: 99284 ×2; 96372; 73030; J1885; J2360